=== PATIENT | female | born 1990 | race Caucasian/White ===

== ENCOUNTER → 2016-08-10 | Outpatient (CLI) | payer OTHER ==
--- NOTE | 2016-08-10 11:16 | REP ---
Clinical: Anatomical evaluation. Comparison: None . Findings: Examination demonstrates a single live intrauterine in transverse presentation. motion is identified by technologist. Placenta is noted fundal and grade zero without evidence for placenta previa or abruption. Amniotic fluid volume is normal. Cervix measures 3.3 cm in length and appears closed. No evidence for nuchal cord. Gestational age by LMP 19 weeks 3 days with PUMA 01/01/2017 . Gestational age by current measurements 20 weeks 3 days with PUMA 12/25/2016 . FHR equals 168 beats per minute. BPD 4.5 cm 19 weeks 5 days HC 18.2 cm 20 weeks 4 days AC 15.8 cm 20 weeks 6 days FL 3.5 cm 21 weeks 1 day HL 3.4 cm 21 weeks 5 days HC/AC ratio 1.15 Estimated weight 386 grams (> 97 percentile based on age by LMP). Anatomical assessment demonstrates normal structures including cranium, choroid plexus, cavum, cerebellum/posterior fossa, facial features, lungs, four-chamber heart/ventricular outflow tracts, diaphragm, stomach, cord insertion/three-vessel cord, kidneys/bladder, spine, and extremities. Impression: 1. Single live intrauterine in transverse lie. Estimated weight is increased based on the patient's age by LMP. 2. Anatomical assessment is complete and normal. Signed by Matthias Dobbs MD 08/10/2016 11:07 A
== END ==
LOC: M LRY 08:22
PROVIDERS: ATTEND Advanced Practice Midwife
DX: O34.211 Maternal care for low transverse scar from previous cesarean delivery (principal)

== ENCOUNTER → 2016-10-09 | Outpatient (CLI) | payer OTHER ==
[2016-10-09 16:50] LABS: MEAN CORPUSCULAR HEMOGLOBIN 28.5 pg (27.0-33.0); MEAN CORPUSCULAR HGB CONC 33.9 g/dl (32.0-36.5); MEAN CORPUSCULAR VOLUME 83.9 fl (80.0-96.0); RED CELL DISTRIBUTION WIDTH 13.3 % (11.5-14.5); WHITE BLOOD COUNT 8.6 K/mm3 (4.0-10.0)
== END ==
LOC: M LRY 09:33
PROVIDERS: ATTEND Obstetrics & Gynecology
DX: Z34.82 Encounter for supervision of other normal pregnancy, second trimester (principal)
CPT/HCPCS: 36415; 82950; 85027; 86850; 86900; 86901; J2790